=== PATIENT | female | born 2000 | race African-American/Black ===

== ENCOUNTER 2021-07-11 18:54 | Emergency (ER) | payer SELFPAY ==
[~2021-07-11] VITALS: Ht 147.3 cm; Wt 55.0 kg
[2021-07-11 20:54] VITALS: BP 110/68
== END 2021-07-12 00:59 | disposition left against medical advice (07) ==
LOC: ER 18:54
DX: N61.0 Mastitis without abscess (principal)
CPT/HCPCS: 99281